=== PATIENT | male | born 1985 | race Caucasian/White ===

== ENCOUNTER 2022-07-29 17:30 | Emergency (ER) | payer MEDICAID, OTHER ==
[~2022-07-29] VITALS: Ht 175.3 cm; Wt 96.2 kg
[2022-07-29 17:30] VITALS: BP 134/78
[2022-07-29] MEDS ORDERED: BUPR8SUB SL (19:52)
[2022-07-29] MEDS ORDERED: GABA800T4 PO (19:52)
== END 2022-07-29 20:18 | disposition home or self-care (01) ==
LOC: M ED 17:30
DX: Z76.0 Encounter for issue of repeat prescription (principal); F17.200 Nicotine dependence, unspecified, uncomplicated; F41.9 Anxiety disorder, unspecified; F32.A Depression, unspecified; Z79.891 Long term (current) use of opiate analgesic; Z79.899 Other long term (current) drug therapy

== ENCOUNTER 2022-08-02 14:04 | Emergency (ER) | payer OTHER ==
[~2022-08-02] VITALS: Ht 175.3 cm; Wt 94.1 kg
[~2022-08-02 14:04] MED LIST: BUPR8SUB SL; GABA800T4 PO
[2022-08-02] MEDS ORDERED: BUPR8SUB SL (16:59)
[2022-08-02] MEDS ORDERED: GABA800T4 PO (16:59)
[2022-08-02 17:07] VITALS: BP 143/77
== END 2022-08-02 17:15 | disposition home or self-care (01) ==
LOC: M ED 14:04
DX: Z76.0 Encounter for issue of repeat prescription (principal); F19.10 Other psychoactive substance abuse, uncomplicated; F17.200 Nicotine dependence, unspecified, uncomplicated; Z79.891 Long term (current) use of opiate analgesic; Z79.810 Long term (current) use of selective estrogen receptor modulators (SERMs)

== ENCOUNTER 2022-09-15 20:07 | Emergency (ER) | payer OTHER ==
[~2022-09-15] VITALS: Ht 175.3 cm; Wt 94.8 kg
[2022-09-15 20:14] VITALS: BP 127/86
[2022-09-15] MEDS ORDERED: SERTRALINE (20:20)
== END 2022-09-15 22:47 | disposition left against medical advice (07) ==
LOC: M ED 20:07
DX: Z53.21 Procedure and treatment not carried out due to patient leaving prior to being seen by health care provider (principal)

== ENCOUNTER 2022-10-13 13:55 | Emergency (ER) | payer OTHER ==
[~2022-10-13] VITALS: Ht 175.3 cm; Wt 94.2 kg
[~2022-10-13 13:55] MED LIST changes: +SERTRALINE
[2022-10-13] MEDS ORDERED: FAMO20TA5 (14:11)
[2022-10-13] MEDS ORDERED: ZOLO100T (14:11)
[2022-10-13] MEDS ORDERED: BUPR8SUB SL (14:11)
[2022-10-13] MEDS ORDERED: ACETAMINOPHEN 325 MG TAB PO ONE (15:45)
[2022-10-13] MEDS ORDERED: ONDANSETRON 4MG ORAL DISINTEGRATING TAB PO ONE (15:45)
[2022-10-13] MEDS ORDERED: FAMOTIDINE 20 MG TAB PO ONE (15:45)
[2022-10-13] MEDS ORDERED: ONDA4TAB6 PO (15:46)
[2022-10-13] MEDS ORDERED: PEPC1TAB5 PO (15:46)
[2022-10-13 16:12] VITALS: BP 129/100
== END 2022-10-13 16:18 | disposition home or self-care (01) ==
LOC: M ED 13:55
DX: Z76.0 Encounter for issue of repeat prescription (principal); F17.200 Nicotine dependence, unspecified, uncomplicated